=== PATIENT | female | born 1990 | race American Indian/Alaskan Native ===

== ENCOUNTER 2017-03-27 15:33 | Outpatient (CLI) | payer MEDICAID ==
[2017-03-27] MEDS ORDERED: LACTATED RINGERS 500 ML IV ONE (15:57)
== END 2017-03-27 16:30 | disposition home or self-care (01) ==
LOC: TRG 15:33
PROVIDERS: ATTEND Obstetrics & Gynecology
DX: O47.02 False labor before 37 completed weeks of gestation, second trimester (principal); Z3A.23 23 weeks gestation of pregnancy
CPT/HCPCS: 59025

== ENCOUNTER 2021-02-13 12:17 | Outpatient (CLI) | payer MEDICAID ==
[2021-02-13] MEDS ORDERED: LACTATED RINGERS 1,000 ML IV ONE (12:43)
[2021-02-13 12:55] VITALS: BP 118/79
[2021-02-13 13:13] LABS: Bilirubin,Urine NEG (Negative); Blood,Urine MOD (Negative); Color,Urine Amber (Yellow); Mucus,Urine 3+ /HPF
--- NOTE | 2021-02-13 14:42 | Ultrasound Report ---
ULTRASOUND BIOPHYSICAL PROFILE ULTRASOUND OB LIMITED INDICATION: BPP/SCOTT/ PLACENTA POSITION. TECHNIQUE: Transabdominal ultrasound imaging. COMPARISON: None FINDINGS: breathing movement = 2 Gross body movement = 2 tone = 2 Qualitative amniotic fluid volume = 2 Total biophysical score = 8/8 Amniotic fluid index is 12.8 cm. Presentation is cephalic. heart rate is 154 beats per minute. Placenta: The placenta is posterior, grade 0. A complete previa is appreciated. No subplacental colle ction. IMPRESSION: biophysical profile equals 8/8. A complete placenta previa is identified. Signer Name: Goryd Perez Jr, MD Signed: 02/13/2021 2:38 PM Workstation Name: [id number]
== END 2021-02-13 15:23 | disposition home or self-care (01) ==
LOC: TRG 12:17 → APU 12:17 → TRG 15:23
PROVIDERS: ATTEND Obstetrics & Gynecology
DX: O26.853 Spotting complicating pregnancy, third trimester (principal); O46.93 Antepartum hemorrhage, unspecified, third trimester; Z3A.30 30 weeks gestation of pregnancy
CPT/HCPCS: 59025; 76815; 76819; 81001; 96360

== ENCOUNTER 2021-02-26 14:00 | Outpatient (CLI) | payer MEDICAID ==
[2021-02-26 14:26] VITALS: BP 130/83
[2021-02-26] MEDS ORDERED: LACTATED RINGERS 500 ML IV ONE (16:00)
--- NOTE | 2021-02-26 16:24 | Ultrasound Report ---
ULTRASOUND OBSTETRIC LIMITED ULTRASOUND BIOPHYSICAL PROFILE INDICATION / CLINICAL INFORMATION: placenta well being. COMPARISON: OB ultrasound 02/13/2021 FINDINGS: BREATHING MOVEMENT = 2 GROSS BODY MOVEMENT = 2 TONE = 2 QUALITATIVE AMNIOTIC FLUID VOLUME = 2 TOTAL BIOPHYSICAL SCORE = 8/8 AMNIOTIC FLUID INDEX (cm) = 1220 PRESENTATION: Breech. HEART RATE (beats per minute): 142 ADDITIONAL FINDINGS: Placenta complete previa grade 0, unchanged IMPRESSION: 1. Biophysical Score = 8/8 2. Placenta previa Signer Name: Zackery Groves MD Signed: 02/26/2021 4:19 PM Workstation Name: [id number]
[2021-02-26 16:35] LABS: Basophils % (Auto) 0.2 % (0.0-1.8); Eosinophils # (Auto) 0.1 K/mm3 (0.0-0.4); Eosinophils % (Auto) 0.7 % (0.0-4.3); Hematocrit 31.6 % (30.3-42.9); Lymphocytes # (Auto) 1.6 K/mm3 (1.2-5.4); Lymphocytes % (Auto) 21.9 % (13.4-35.0); Mean Corpuscular HGB Conc 32 % (30-34); Mean Corpuscular Volume 78 fl (79-97); Monocytes # (Auto) 0.6 K/mm3 (0.0-0.8); Monocytes % (Auto) 7.7 % (0.0-7.3); Platelet Count 188 K/mm3 (140-440); Red Blood Count 4.06 M/mm3 (3.65-5.03); Red Cell Distribution Width 20.9 % (13.2-15.2)
== END 2021-02-26 16:39 | disposition home or self-care (01) ==
LOC: TRG 14:00 → APU 14:13 → TRG 16:39
PROVIDERS: ATTEND Obstetrics & Gynecology
DX: O44.03 Complete placenta previa NOS or without hemorrhage, third trimester (principal); Z3A.32 32 weeks gestation of pregnancy
CPT/HCPCS: 36415; 59025; 76815; 76819; 85025; 85384

== ENCOUNTER 2021-03-15 20:54 | Inpatient (IN) | payer MEDICAID ==
[2021-03-15] MEDS ORDERED: METHYLERGONOVINE MALEATE 0.2 MG/ML VIAL IM ONE (21:00)
[2021-03-15] MEDS ORDERED: FAMOTIDINE 20 MG/2 ML INJ IV ONE ×3 (21:04→21:28)
[2021-03-15] MEDS ORDERED: BICITRA ORAL LIQD 30ML ONE (21:04)
[2021-03-15] MEDS ORDERED: METOCLOPRAMIDE 10 MG/2 ML INJ ONE (21:04)
[2021-03-15] MEDS ORDERED: OXYTOCIN DRIP 30,000 MILLIUNITS/500 ML BAG IV ONE (21:05)
[2021-03-15] MEDS ORDERED: miSOPROStol 200 MCG TAB ONE (21:05)
--- NOTE | 2021-03-15 21:05 | Anesthesia Day of Surgery ---
Anesthesia Day of Surgery - Day of Surgery Patient Examined: Yes Patient H&P Reviewed: Yes Patient is NPO: No (1 hr ago) Beta Blockers: No Cardiac Clearance: No Pulmonary Clearance: No Jhon's Test: Negative
[2021-03-15] MEDS ORDERED: ONDANSETRON 4 MG/2 ML INJ IV PRN (21:07)
[2021-03-15] MEDS ORDERED: HYDROmorphone 1 MG/1 ML INJ IV PRN ×2 (21:07)
[2021-03-15] MEDS ORDERED: NALOXONE 0.4 MG/1 ML INJ IV PRN ×2 (21:07→22:30)
--- NOTE | 2021-03-15 21:07 | Anesthesia Consultation ---
Anesthesia Consult and Med Hx Date of service: 03/15/21 - Airway Anesthetic Teeth Evaluation: Poor ROM Head & Neck: Adequate Mental/Hyoid Distance: Adequate Mallampati Class: Class II Intubation Access Assessment: Probably Good - Pulmonary Exam CTA: Yes - Cardiac Exam Cardiac Exam: RRR - Pre-Operative Health Status ASA Pre-Surgery Classification: ASA3, Emergency Proposed Anesthetic Plan: General, Spinal - Pulmonary Hx Smoking: Yes (stop with ) Hx Asthma: No Hx Respiratory Symptoms: No SOB: No COPD: No Home Oxygen Therapy: No Hx Pneumonia: No Hx Sleep Apnea: No - Cardiovascular System Hx Hypertension: No Hx Coronary Artery Disease: No Hx Heart Attack/AMI: No Hx Angina: No Hx Percutaneous Transluminal Coronary Angioplasty (PTCA): No Hx Cardia Arrhythmia: No Hx Pacemaker: No Hx Internal Defibrillator: No Hx Valvular Heart Disease: No Hx Heart Murmur: No Hx Peripheral Vascular Disease: No - Central Nervous System Hx Neuromuscular Disorder: No Hx Seizures: Yes (2012 preeclampsia) CVA: No Hx Back Pain: Yes Hx Psychiatric Problems: No - Gastrointestinal Hx Ulcer: No Hx Gastroesophageal Reflux Disease: Yes - Endocrine Hx Renal Disease: No Hx End Stage Renal Disease: No Hx Cirrhosis: No Hx Liver Disease: No Hx Insulin Dependent Diabetes: No Hx Non-Insulin Dependent Diabetes: No Hx Thyroid Disease: No Hx Hypothyroidism: No Hx Hyperthyroidism: No - Hematic Hx Anemia: No Hx Sickle Cell Disease: No - Other Systems Hx Alcohol Use: No Hx Substance Use: Yes Hx Cancer: No Hx Obesity: No
[2021-03-15] MEDS ORDERED: ONDANSETRON 4 MG/2 ML INJ ONE ×2 (21:18)
[2021-03-15] MEDS ORDERED: METOCLOPRAMIDE 10 MG/2 ML INJ IV ONE (21:28)
[2021-03-15] MEDS ORDERED: BICITRA ORAL LIQD 30ML PO ONE (21:28)
[2021-03-15] MEDS ORDERED: LACTATED RINGERS 1,000 ML IV SCH (21:30)
[2021-03-15 21:35] LABS: Hematocrit 34.7 % (30.3-42.9); Hemoglobin 11.1 gm/dl (10.1-14.3); Mean Corpuscular HGB Conc 32 % (30-34); Mean Corpuscular Volume 78 fl (79-97); Platelet Count 242 K/mm3 (140-440); Red Blood Count 4.45 M/mm3 (3.65-5.03)
--- NOTE | 2021-03-15 21:36 | History and Physical Report ---
History of Present Illness Date of examination: 03/15/21 Date of admission: 03/15/21 Chief complaint: 34 wks iup,placenta previa,vag bleeding History of present illness: Patient is a 30-year-old Afro[place] female at 34 weeks with complete placenta previa. Her EDC is 04/23/2021 she has a history of previous section x1 and 2 vaginal deliveries. She has 1 living child. Her paperwork is not available. She is a patient at [facility]. The patient presented with significant amount of vaginal bleeding and we are making preparations for a repeat section for the above diagnosis. Past History Past Surgical History: section Family/Genetic History: none Social history: single - Obstetrical History Expected Date of Delivery: 04/23/21 Actual Gestation: 34 Week(s) 3 Day(s) : 6 Para: 5 Hx # Term Pregnancies: 4 Number of Pregnancies: 0 Spontaneous Abortions: 0 Induced : 0 Number of Living Children: 2 Medications and Allergies Allergies Allergy/AdvReac Type Severity Reaction Status Date / Time No Known Allergies Allergy Verified 03/27/17 15:56 Active Meds: Active Medications Citric Acid/Sodium Citrate (Bicitra Oral Liqd 30ml) 30 ml PO ONCE ONE Stop: 03/15/21 21:29 Famotidine (Famotidine 20 Mg/2 Ml Inj) 20 mg IV ONCE ONE Stop: 03/15/21 21:29 Hydromorphone HCl (Hydromorphone 1 Mg/1 Ml Inj) 0.5 mg IV Q5M PRN PRN Reason: BREAK Stop: 03/16/21 05:59 Hydromorphone HCl (Hydromorphone 1 Mg/1 Ml Inj) 0.5 mg IV Q4H PRN PRN Reason: breakthrough pain > 7/10 Lactated Ringer's (Lactated Ringers) 1,000 mls @ 2,250 mls/hr IV PREOP MICKY Stop: 03/16/21 21:57 Oxytocin/Sodium Chloride (Pitocin/Ns 30 Unit/500ml) 30 units in 500 mls @ 0 mls/hr IV TITR MICKY; Protocol Metoclopramide HCl (Metoclopramide 10 Mg/2 Ml Inj) 10 mg IV ONCE ONE Stop: 03/15/21 21:29 Naloxone HCl (Naloxone 0.4 Mg/1 Ml Inj) 0.2 mg IV Q2MIN PRN PRN Reason: Res Rate </= 8 or 02 SAT < 92% Ondansetron HCl (Ondansetron 4 Mg/2 Ml Inj) 4 mg IV Q8H PRN PRN Reason: Nausea And Vomiting Review of Systems All systems: negative - Vital Signs Vital signs: Vital Signs Pulse Pulse Ox 98 H 99 03/15/21 21:00 03/15/21 21:00 Temp Pulse Resp BP Pulse Ox 108 H 138/90 99 03/15/21 21:30 03/15/21 21:11 03/15/21 21:30 - Physical Exam Breasts: Cardiovascular: Regular rate, Normal S1, Normal S2 Abdomen: Positive: normal appearance, soft, normal bowel sounds. Negative: distention, tenderness Vulva: both: normal Vagina: Positive: normal moisture. Negative: discharge Cervix: Negative: lesion, discharge Uterus: Positive: normal size, enlarged (34 wk size), normal contour Adnexa: both: normal Anus/Rectum: Positive: normal perianal skin, heme negative. Negative: rectal mass, hemorrhoids Extremities: Deep Tendon Reflex Grade: Normal +2 - Obstetrical FHR: category 1 Uterine Contraction Monitor Mode: Palpation Results All other labs normal. Assessment and Plan 34 wks, placenta previa, vag bleeding.plan emergency l/t c/s.
[2021-03-15] MEDS ORDERED: LACTATED RINGERS 2,000 ML ONE (21:37)
[2021-03-15] MEDS ORDERED: PHENYLEPHRINE/NS 1,000 MCG/10 ML SYRINGE (OR USE) IV ONE (21:39)
[2021-03-15] MEDS ORDERED: ceFAZolin/STERILE WATER 2 GM/20 ML SYRINGE IV ONE (21:40)
[2021-03-15 21:44] LABS: INR 0.97 (0.87-1.13)
[2021-03-15 21:45] LABS: Partial Thromboplastin Time 28.5 Sec. (24.2-36.6)
[2021-03-15] MEDS ORDERED: LACTATED RINGERS 1,000 ML ONE (21:54)
[2021-03-15] MEDS ORDERED: dexAMETHasone 20 MG/5 ML VIAL ONE (21:57)
[2021-03-15] MEDS ORDERED: BUPIVACAINE/PF (0.25%) 2.5 MG/ML 30 ML VIAL INFILTRATI ONE ×2 (21:57)
[2021-03-15] MEDS ORDERED: SODIUM CHLORIDE 0.9% 500 ML 500 ML IV ONE (21:58)
[2021-03-15] MEDS ORDERED: OXYTOCIN DRIP 30 UNITS/500 ML BAG IV SCH ×2 (22:00→23:00)
[2021-03-15] MEDS ORDERED: KETOROLAC 30 MG/1 ML INJ ONE (22:16)
[2021-03-15] MEDS ORDERED: WITCH HAZEL/ GLYCERIN PAD TP PRN (22:30)
[2021-03-15] MEDS ORDERED: MORPHINE 2 MG/1 ML INJ IV PRN (22:30)
[2021-03-15] MEDS ORDERED: LANOLIN/ZINC/DIMETHICONE (LANSINOH) 7 GM TP PRN (22:30)
--- NOTE | 2021-03-15 22:43 | Procedure Note ---
Date of procedure: 03/15/21 Pre-op diagnosis: 35 weeks iup, complete previa, vaginal bleeding Post-op diagnosis: other (nuchal cord x 1) Procedure: Operative note on this patient. Time of surgery was [address] Truong Cushion Padder none. Preop diagnosis 35-week intrauterine complete placenta previa vaginal bleeding. Postop diagnosis same and nuchal cord x1. Procedure was a repeat low transverse section. Estimated blood loss 760 cc. Findings liveborn female infant weight 5 pounds 3 ounces Apgars 7 and 7 also the patient had a complete placenta previa. Complications none. The procedure was performed in the following manner patient was taken to the section room. Given a spinal anesthetic adequate enough for the procedure she was then prepped and draped in usual manner and had an indwelling Savage catheter placed we then did timeout we concurred. A Pfannenstiel incision was created along the previous Pfannenstiel incision we entered abdominal cavity anatomically vesicouterine peritoneum was opened transversely with Metzenbaums bladder was bluntly and sharply dissected off the lower uterine segment. A low transverse incision was made in the lower uterine segment with a scalpel and fetus in occiput anterior presentation was delivered with the help of the Kiwi suction cup. Oropharyngeal suction nasopharynx suction resume was delivered cord was doubly clamped and cut fetus passed off the table to the nurses in attendance from the nursery. Cord blood was obtained placenta was then delivered manually the placenta was not complete placenta previa. The uterus was cleaned debris membranes blood and tissue uterus then delivered extra-abdominal uterine incision was repaired in 2 layers first layer was in a deep myometrium using running #0 chromic in a deep myometrium running locking fashion superficial myometrium was closed with running 2-0 Vicryl in a running locking fashion the uterine incision was hemostatic vesicouterine peritoneum was repaired running 2-0 chromic and there was a small tear on the top of the uterus which was repaired with a transfixing suture #0 chromic this area was hemostatic tubes and ovaries appeared to be found fine. Gutters were suction of tissue brief debris and blood. See no further procedures indicated all instruments removed from abdominal care instrument count needle lap sponge count was correct anterior abdominal peritoneum was repaired running 2-0 chromic fascia was repaired running 2-0 chromic subcutaneous prior running 0 Vicryl subcutaneous. Tissue repaired running 2-0 chromic the skin was repaired with a running 4-0 Vicryl on a Ishmael needle and drained with Dermabond patient tolerated procedure well she was then returned recovery room in stable condition end of operative note on this patient. Anesthesia: spinal Surgeon: DELGADO TRUONG Estimated blood loss: other (760ccs) IV fluids: 1,200 Urine output: 200 Pathology: list Specimen disposition: to lab Condition: stable Disposition: PACU
--- NOTE | 2021-03-15 23:07 | Progress Note ---
Spinal Anesthesia Block - Spinal Anesthesia Block Start Time: 21:36 Stop Time: 21:39 Performed by:: SHADI NARAYANAN Procedure: Patient IDed, H&P reviewed, all questions and concerns were answered, and consent was signed. Timeout was performed at bedside. Patient in sitting position. Sterile prep and drape was performed. [3] ml of 1% lidocaine skin wheal at L[3]- L [4]. Needle introducer advanced. 25 gauge spinal needle advanced. Clear, free flowing CSF. negative blood, negative paresthesia. Spinal dose given. All needles removed. Patient tolerated procedure.
--- NOTE | 2021-03-15 23:08 | Progress Note ---
Spinal Anesthesia Block - Spinal Anesthesia Block Start Time: 22:48 Stop Time: 22:52 Performed by:: SHADI NARAYANAN Procedure: Patient consented for TAP block for post surgical pain management. Patient identified, monitors placed, and time out performed. TAP identified bilaterally via ultrasound. Skin prepped bilaterally with [chlorhexidine] and [22g stimuplex] needle advanced to the TAP. [Marcaine 0.25% 35ml] injected under ultrasound guidance on the [left] side. [Marcaine 0.25% 35ml] injected under ultrasound guidance on the [right] side. Negative aspiration every 5mL, No change in heart rate or rhythm. Patient tolerated the procedure well. No apparent complications seen.
[2021-03-16] MEDS: MORPHINE 4 MG/1 ML INJ IV PRN ×2 (01:13→04:12)
[2021-03-16] MEDS ORDERED: LACTATED RINGERS 1,000 ML IV SCH (04:30)
[2021-03-16] MEDS: IBUPROFEN 600 MG TAB PO PRN ×2 (06:37→15:47)
[2021-03-16] MEDS: oxyCODONE /ACETAMINOPHEN 5-325MG TAB PO PRN ×3 (09:49→22:22)
[2021-03-16] MEDS: SIMETHICONE 80 MG CHEW TAB PO PRN (09:52)
--- NOTE | 2021-03-16 10:58 | Post Anesthesia Evaluation ---
- Post Anesthesia Evaluation Patient Participated: Yes Airway Patent: Yes Stable Respiratory Function: Yes Nausea/Vomiting: No Temp > 96.8F: Yes Pain Manageable: Yes Adequeate Hydration: Yes Anesthesia Complications: No Block Receding Appropriately: Yes Patient on Ventilator: No
--- NOTE | 2021-03-16 11:44 | Progress Note ---
Assessment and Plan A: S/P Repeat LTCS No H&H and covid results No void yet Abd slightly distended P: Continue routine pp orders Awaiting Lab results Encourage ambulation Monitor void D/C home within 24-48 hrs if stable - Patient Problems (1) S/P repeat low transverse Current Visit: Yes Status: Acute Subjective - Subjective Date of service: 03/16/21 Principal diagnosis: s/p LTCS Patient reports: appetite normal, pain well controlled, flatus, ambulating normally, other (Savage just removed no void yet) [place]: doing well, in NICU Objective - Vital Signs Latest vital signs: Vital Signs Temp Pulse Resp BP BP Pulse Ox Pulse Ox 03/16/21 10:18 100 03/16/21 08:15 98 03/16/21 07:53 98.0 F 72 20 132/86 98 03/16/21 06:37 18 03/16/21 06:35 98 03/16/21 04:34 98.0 F 65 16 125/81 97 03/16/21 04:12 18 03/16/21 01:40 98 03/16/21 01:13 16 98 03/16/21 00:25 97.9 F 64 16 130/88 98 98 03/16/21 00:00 97.6 F 62 19 120/81 100 03/15/21 23:55 66 17 121/74 100 03/15/21 23:40 68 15 116/79 99 03/15/21 23:25 92 H 11 L 116/85 99 03/15/21 23:18 99 03/15/21 23:10 65 20 128/85 99 03/15/21 22:50 62 13 110/60 03/15/21 22:45 73 16 109/60 03/15/21 22:40 97.8 F 79 20 106/54 100 03/15/21 21:30 108 H 99 03/15/21 21:25 97 H 100 03/15/21 21:20 108 H 100 03/15/21 21:15 104 H 100 03/15/21 21:11 92 H 138/90 03/15/21 21:10 107 H 100 03/15/21 21:05 103 H 100 03/15/21 21:00 98 H 99 Intake and Output 03/15/21 03/16/21 03/16/21 22:59 06:59 14:59 Intake Total 1200 200 200 Output Total 200 1600 100 Balance 1000 -1400 100 Intake: IV 1200 Oral 200 200 Output: Urine 200 1600 100 Indwelling Catheter 400 100 Uretheral (Savage) 925 Other: Total, Intake Amount 100 200 Total, Output Amount 200 100 Weight 144 lb 144 lb Estimated Blood Loss 760 - Exam Breasts: Present: normal Abdomen: Present: normal appearance, soft, distention, normal bowel sounds, other (some distention) Vulva: both: normal Uterus: Present: normal, firm, fundal height below umbilicus Extremities: Present: normal Incision: Present: normal, dry, intact - Labs Labs: Abnormal lab results 03/15/21 03/15/21 03/15/21 Range/Units 21:00 21:00 21:00 MCV 78 L (79-97) fl MCH 25 L (28-32) pg RDW 21.0 H (13.2-15.2) % D-Dimer 824.20 H (0-234) ng/mlDDU Crossmatch See Detail
[2021-03-16 13:09] LABS: Hematocrit 29.8 % (30.3-42.9); Hemoglobin 9.7 gm/dl (10.1-14.3)
[2021-03-17] MEDS: IBUPROFEN 600 MG TAB PO PRN ×4 (00:30→20:14)
[2021-03-17] MEDS: oxyCODONE /ACETAMINOPHEN 5-325MG TAB PO PRN ×4 (04:32→23:11)
[2021-03-17] MEDS: SIMETHICONE 80 MG CHEW TAB PO PRN (09:31)
[2021-03-17] MEDS: FERROUS SULFATE 325 MG TAB PO SCH ×2 (09:31→23:10)
--- NOTE | 2021-03-17 20:19 | Progress Note ---
Assessment and Plan A: /postop day 2 S/P repeat LTCS (complete previa, ). Anemia. P: Continue iron supplementation. Encouraged patient to ambulate. Routine /postop care. Subjective - Subjective Date of service: 03/17/21 Principal diagnosis: /postop day 2 S/P repeat LTCS Patient reports: appetite normal, voiding normally, pain well controlled, flatus, ambulating normally, no dizzy ambulation, no nauseated : in NICU Objective - Vital Signs Latest vital signs: Vital Signs Temp Pulse Resp BP Pulse Ox Pulse Ox 03/17/21 20:14 18 03/17/21 15:58 98.0 F 79 18 127/84 98 03/17/21 08:42 98.0 F 74 18 130/86 99 03/17/21 08:00 98 03/17/21 05:22 98 03/17/21 04:32 18 98 03/17/21 00:45 98.1 F 64 18 96/48 96 03/16/21 22:22 18 99 Intake and Output 03/17/21 03/17/21 03/17/21 07:59 15:59 23:59 Intake Total 260 Balance 260 Intake: Oral 260 Other: Total, Intake Amount 260 # Voids Void 3 1 - Exam Cardiovascular: Present: Regular rate Lungs: Present: Clear to auscultation Abdomen: Present: normal appearance, soft, normal bowel sounds. Absent: distention, tenderness, guarding, rigidity Uterus: Present: normal, firm, fundal height below umbilicus (Fundal height at 1 FB below umbilicus). Absent: bogginess, tenderness Extremities: Absent: tenderness, edema Incision: Present: dry, intact - Labs Labs: Abnormal lab results 03/15/21 Range/Units 21:00 Crossmatch See Detail
[2021-03-18] MEDS: IBUPROFEN 600 MG TAB PO PRN ×3 (02:54→16:05)
[2021-03-18] MEDS: oxyCODONE /ACETAMINOPHEN 5-325MG TAB PO PRN ×3 (05:09→17:35)
[2021-03-18 08:50] LABS: Bilirubin,Urine NEG (Negative); Blood,Urine MOD (Negative); Color,Urine Yellow (Yellow); Mucus,Urine FEW /HPF; Protein,Urine <15 mg/dL mg/dL (Negative); Urobilinogen,Urine < 2.0 mg/dL (<2.0)
[2021-03-18 09:04] LABS: Basophils % (Auto) 0.2 % (0.0-1.8); Eosinophils # (Auto) 0.1 K/mm3 (0.0-0.4); Eosinophils % (Auto) 1.6 % (0.0-4.3); Hematocrit 27.9 % (30.3-42.9); Lymphocytes # (Auto) 1.9 K/mm3 (1.2-5.4); Mean Corpuscular HGB Conc 32 % (30-34); Mean Corpuscular Volume 80 fl (79-97); Monocytes # (Auto) 0.6 K/mm3 (0.0-0.8); Monocytes % (Auto) 7.2 % (0.0-7.3); Platelet Count 150 K/mm3 (140-440); Red Blood Count 3.51 M/mm3 (3.65-5.03)
--- NOTE | 2021-03-18 09:32 | Progress Note ---
Assessment and Plan POD#3 c/s still with dysuria, unclear cause. pt also with bilaterally engorged breasts 1. Will send straight cath urine for analysis 2. Continue antibiotics and pt told to pump milk every 2hrs and warm compress 3. Routine post op care Plan of care discussed and pt agrees Subjective Date of service: 03/18/21 Principal diagnosis: POD#2 repeat c/s Interval history: pt c/o painful urination felt along the incision site. pt also states when she lies on her left side, the incision is very painful. pt states she is breast pumping but minimal milk noted. pt has been going to the NICU to see her baby. Denies fever or chills. pt is passing flatus and vag bleed less than a period. Objective - Constitutional Vitals: Vital Signs - 12hr 03/17/21 03/18/21 03/18/21 23:11 00:11 00:54 Temperature 97.8 F Pulse Rate 75 Respiratory 18 18 20 Rate Blood Pressure 133/82 O2 Sat by Pulse 97 Oximetry O2 Sat by Pulse Oximetry [ Anterior Bilateral Throughout] 03/18/21 03/18/21 03/18/21 02:54 03:54 05:09 Temperature Pulse Rate Respiratory 18 18 18 Rate Blood Pressure O2 Sat by Pulse Oximetry O2 Sat by Pulse Oximetry [ Anterior Bilateral Throughout] 03/18/21 03/18/21 03/18/21 06:09 08:00 08:27 Temperature 98.3 F Pulse Rate 75 Respiratory 18 20 Rate Blood Pressure 133/81 O2 Sat by Pulse 99 Oximetry O2 Sat by Pulse 98 Oximetry [ Anterior Bilateral Throughout] General appearance: Present: no acute distress - Breasts Breasts: tender, other (and engorged bilaterally) - Cardiovascular Rhythm: regular Extremities: No edema - Gastrointestinal General gastrointestinal: Present: soft, other (Incision with dermabond in place and non-tender on palpation.) - Genitourinary Female genitourinary: other (Fundus firm 2cm below the umbilicus) - Labs CBC & Chem 7: 03/16/21 10:38 Medications & Allergies - Medications Allergies/Adverse Reactions: Allergies No Known Allergies Allergy (Verified 03/16/21 00:54) Active Medications: Generic Name Dose Route Start Last Admin Trade Name Freq PRN Reason Stop Dose Admin Ferrous Sulfate 325 mg 03/17/21 10:00 03/17/21 23:10 Ferrous Sulfate 325 Mg Tab PO 325 mg BID MICKY Administration Hydromorphone HCl 0.5 mg 03/15/21 21:07 Hydromorphone 1 Mg/1 Ml Inj IV Q4H PRN breakthrough pain > 7/10 Oxytocin/Sodium Chloride 30 units in 500 mls @ 0 mls/hr 03/15/21 22:00 Pitocin/Ns 30 Unit/500ml IV TITR MICKY Protocol As Directed Oxytocin/Sodium Chloride 30 units in 500 mls @ 40 mls/hr 03/15/21 23:00 Pitocin/Ns 30 Unit/500ml IV TITR MICKY Protocol Lactated Ringer's 1,000 mls @ 125 mls/hr 03/16/21 04:30 03/16/21 04:38 Lactated Ringers IV 125 mls/hr DIRECT MICKY Administration Ibuprofen 600 mg 03/15/21 22:30 03/18/21 08:27 Ibuprofen 600 Mg Tab PO 600 mg Q6H PRN Administration Pain, Mild (1-3) Morphine Sulfate 2 mg 03/15/21 22:30 Morphine 2 Mg/1 Ml Inj IV Q4H PRN Pain, Moderate (4-6) Morphine Sulfate 4 mg 03/15/21 22:30 03/16/21 04:12 Morphine 4 Mg/1 Ml Inj IV 4 mg Q4H PRN Administration Pain , Severe (7-10) Multi-Ingredient Ointment 1 applic 03/15/21 22:30 03/18/21 08:30 Lanolin/Zinc/Dimethicone (Lansinoh) 7 Gm TP 1 applic PRN PRN Administration dryness/cracking Naloxone HCl 0.1 mg 03/15/21 22:30 Naloxone 0.4 Mg/1 Ml Inj IV Q2MIN PRN Res Rate </= 8 or 02 SAT < 92% Ondansetron HCl 4 mg 03/15/21 21:07 Ondansetron 4 Mg/2 Ml Inj IV Q8H PRN Nausea And Vomiting Oxycodone/Acetaminophen 1 tab 03/15/21 22:30 03/18/21 05:09 Oxycodone /Acetaminophen 5-325mg Tab PO 1 tab Q6H PRN Administration Pain, Moderate (4-6) Simethicone 80 mg 03/15/21 22:30 03/17/21 09:31 Simethicone 80 Mg Chew Tab PO 80 mg Q6H PRN Administration Gas pain Sodium Chloride 10 ml 03/15/21 23:00 Sodium Chloride 0.9% 10 Ml Flush Syringe IV PRN PRN LINE FLUSH Witch Kaitlyn/Glycerin 1 each 03/15/21 22:30 Witch Kaitlyn/ Glycerin Pad TP PRN PRN Hemorrhoids/cleansing/soothing
[2021-03-18 09:37] LABS: Red Cell Distribution Width 20.4 % (13.2-15.2)
[2021-03-18] MEDS: FERROUS SULFATE 325 MG TAB PO SCH ×2 (10:27→22:55)
[2021-03-18 17:00] LABS: Bilirubin,Urine NEG (Negative); Blood,Urine NEG (Negative); Color,Urine Yellow (Yellow); Mucus,Urine FEW /HPF; Protein,Urine <15 mg/dL mg/dL (Negative)
--- NOTE | 2021-03-18 19:37 | Event Note ---
Date: 03/18/21 Labs seen with urinalysis with moderate blood. I called pt's nurse and asked if cath specimen was done earlier. She stated no. Straight cath urinalysis done and results seen and negative hematuria noted. Percocet meds adjusted to 2 pills prn with better effect per nurse report. Plan for possible discharge in the am if pt remains stable.
[2021-03-19] MEDS: oxyCODONE /ACETAMINOPHEN 5-325MG TAB PO PRN ×4 (00:35→19:20)
[2021-03-19] MEDS: FERROUS SULFATE 325 MG TAB PO SCH ×2 (09:41→22:35)
[2021-03-19] MEDS: IBUPROFEN 600 MG TAB PO PRN ×2 (09:41→16:48)
--- NOTE | 2021-03-19 10:00 | Progress Note ---
Assessment and Plan POD#4 C/S with scant drainage from incision centrally. Platelets trended from 250's to 150's; hgb 9; Bilateral breast without engorgement today 1. Will repeat CBC today, place dry gauze pressure dressing and give iron supplement. 2. Start augmentin abx bid 3. Consider discharge tomorrow when wound heals adequately 4. Continue breast pumping every 2-3hours Plan of care discussed Subjective Principal diagnosis: POD#3 repeat c/s Interval history: pt is now breast pumping with good milk return today. pt states abdominal pain much improved and now with 2 percocet tabs. Pt denies N/V/F/C and tolerates regular diet and passing flatus. pt takes milk to the NICU and visit with baby. Objective - Constitutional Vitals: Vital Signs - 12hr 03/19/21 03/19/21 03/19/21 00:35 00:38 01:03 Temperature 98.5 F Pulse Rate 101 H Respiratory 20 Rate Blood Pressure 129/90 O2 Sat by Pulse 100 Oximetry O2 Sat by Pulse 100 100 Oximetry [ Anterior Bilateral Throughout] 03/19/21 03/19/21 03/19/21 05:48 07:26 08:00 Temperature 99.1 F Pulse Rate 81 Respiratory 18 16 Rate Blood Pressure 117/70 O2 Sat by Pulse 95 Oximetry O2 Sat by Pulse 98 98 Oximetry [ Anterior Bilateral Throughout] General appearance: Present: no acute distress - Respiratory Respiratory effort: normal Extremities: No edema - Gastrointestinal General gastrointestinal: Present: non-tender, non-distended, other (Incision with dermabond, now oozing scant serosanguinous fluid centrally below a previously white powder area, no warmth; mild edema above the incision.) - Integumentary Integumentary: warm - Neurologic Neurologic: moves all extremities - Psychiatric Psychiatric: cooperative - Labs CBC & Chem 7: 03/18/21 08:40 Medications & Allergies - Medications Allergies/Adverse Reactions: Allergies No Known Allergies Allergy (Verified 03/16/21 00:54) Home Medications: Home Medications Medication Instructions Recorded Confirmed Last Taken Type Ibuprofen [Motrin] 800 mg PO Q8HR PRN 21 Days #40 03/19/21 Unknown Rx tablet oxyCODONE /ACETAMINOPHEN [Percocet 1 tab PO Q4HR PRN 21 Days #30 tab 03/19/21 Unknown Rx 5/325] Active Medications: Generic Name Dose Route Start Last Admin Trade Name Markq PRN Reason Stop Dose Admin Ferrous Sulfate 325 mg 03/17/21 10:00 03/19/21 09:41 Ferrous Sulfate 325 Mg Tab PO 325 mg BID MICKY Administration Hydromorphone HCl 0.5 mg 03/15/21 21:07 Hydromorphone 1 Mg/1 Ml Inj IV Q4H PRN breakthrough pain > 7/10 Oxytocin/Sodium Chloride 30 units in 500 mls @ 0 mls/hr 03/15/21 22:00 Pitocin/Ns 30 Unit/500ml IV TITR MICKY Protocol As Directed Oxytocin/Sodium Chloride 30 units in 500 mls @ 40 mls/hr 03/15/21 23:00 Pitocin/Ns 30 Unit/500ml IV TITR MICKY Protocol Lactated Ringer's 1,000 mls @ 125 mls/hr 03/16/21 04:30 03/16/21 04:38 Lactated Ringers IV 125 mls/hr DIRECT MICKY Administration Ibuprofen 600 mg 03/15/21 22:30 03/19/21 09:41 Ibuprofen 600 Mg Tab PO 600 mg Q6H PRN Administration Pain, Mild (1-3) Morphine Sulfate 2 mg 03/15/21 22:30 Morphine 2 Mg/1 Ml Inj IV Q4H PRN Pain, Moderate (4-6) Morphine Sulfate 4 mg 03/15/21 22:30 03/16/21 04:12 Morphine 4 Mg/1 Ml Inj IV 4 mg Q4H PRN Administration Pain , Severe (7-10) Multi-Ingredient Ointment 1 applic 03/15/21 22:30 03/18/21 08:30 Lanolin/Zinc/Dimethicone (Lansinoh) 7 Gm TP 1 applic PRN PRN Administration dryness/cracking Naloxone HCl 0.1 mg 03/15/21 22:30 Naloxone 0.4 Mg/1 Ml Inj IV Q2MIN PRN Res Rate </= 8 or 02 SAT < 92% Ondansetron HCl 4 mg 03/15/21 21:07 Ondansetron 4 Mg/2 Ml Inj IV Q8H PRN Nausea And Vomiting Oxycodone/Acetaminophen 1 tab 03/15/21 22:30 03/19/21 05:48 Oxycodone /Acetaminophen 5-325mg Tab PO 1 tab Q6H PRN Administration Pain, Moderate (4-6) Oxycodone/Acetaminophen 2 tab 03/18/21 10:16 03/19/21 00:35 Oxycodone /Acetaminophen 5-325mg Tab PO 2 tab Q6H PRN Administration Pain, Moderate (4-6) Simethicone 80 mg 03/15/21 22:30 03/17/21 09:31 Simethicone 80 Mg Chew Tab PO 80 mg Q6H PRN Administration Gas pain Sodium Chloride 10 ml 03/15/21 23:00 Sodium Chloride 0.9% 10 Ml Flush Syringe IV PRN PRN LINE FLUSH Witch Kaitlyn/Glycerin 1 each 03/15/21 22:30 Witch Kaitlyn/ Glycerin Pad TP PRN PRN Hemorrhoids/cleansing/soothing
[2021-03-19 10:57] LABS: Basophils % (Auto) 0.4 % (0.0-1.8); Eosinophils # (Auto) 0.2 K/mm3 (0.0-0.4); Eosinophils % (Auto) 3.1 % (0.0-4.3); Hematocrit 28.3 % (30.3-42.9); Hemoglobin 8.9 gm/dl (10.1-14.3); Lymphocytes # (Auto) 2.1 K/mm3 (1.2-5.4); Lymphocytes % (Auto) 28.6 % (13.4-35.0); Mean Corpuscular HGB Conc 31 % (30-34); Mean Corpuscular Volume 79 fl (79-97); Monocytes # (Auto) 0.5 K/mm3 (0.0-0.8); Monocytes % (Auto) 6.7 % (0.0-7.3); Platelet Count 241 K/mm3 (140-440); Red Blood Count 3.57 M/mm3 (3.65-5.03)
[2021-03-19 11:35] LABS: Red Cell Distribution Width 20.5 % (13.2-15.2)
[2021-03-19] MEDS: AMOXICILLIN/K CLAV 875/125MG TAB PO SCH (12:37)
[2021-03-20] MEDS: AMOXICILLIN/K CLAV 875/125MG TAB PO SCH ×2 (00:47→09:08)
[2021-03-20] MEDS: IBUPROFEN 600 MG TAB PO PRN (01:41)
[2021-03-20] MEDS: oxyCODONE /ACETAMINOPHEN 5-325MG TAB PO PRN (07:34)
[2021-03-20 08:43] VITALS: BP 131/77
[2021-03-20] MEDS: FERROUS SULFATE 325 MG TAB PO SCH (09:08)
--- NOTE | 2021-03-20 09:20 | Discharge Summary ---
Providers - Providers Date of Admission: 03/15/21 22:39 Date of discharge: 03/20/21 Attending physician: DELGADO TRUONG MD Primary care physician: DEJAH CORONA MD Hospitalization Reason for admission: IUP - (placenta previa), section, labor, other Procedure: section Incision: normal Other procedures: none Discharge diagnosis: delivery (placenta previa) Condition at discharge: Good Disposition: 01 HOME / SELF CARE / HOMELESS Plan - Discharge Medications Prescriptions: Ibuprofen [Motrin] 800 mg PO Q8HR PRN 21 Days #40 tablet PRN Reason: Pain, Mild (1-3) oxyCODONE /ACETAMINOPHEN [Percocet 5/325] 1 tab PO Q4HR PRN 21 Days #30 tab PRN Reason: Pain , Severe (7-10) - Provider Discharge Summary Additional instructions: [] Smoking cessation referral if applicable(refer to patient education folder for contact #) [] Refer to [facility] Booklet Call your doctor immediately for: * Fever > 100.5 * Heavy vaginal bleeding ( >1 pad per hour) * Severe persistent headache * Shortness of breath * Reddened, hot, painful area to leg or breast * Drainage or odor from incision. * Keep incision clean and dry at all times and follow doctor's instructions regarding bathing/showering - Follow up plan Follow up: DEJAH CORONA MD [Primary Care Provider] - 7 Days Forms: [facility] Discharge Summary
== END 2021-03-20 10:00 | disposition home or self-care (01) | DRG 765 ==
LOC: TRG 20:54 → APU 20:56 → TRG 22:30 → APU 22:39 → OB 03-16 00:57
PROC: 10D00Z1 Extraction of Products of Conception, Low, Open Approach (ICD-10-PCS; principal; 2021-03-15)
PROC: 3E0T3BZ Introduction of Anesthetic Agent into Peripheral Nerves and Plexi, Percutaneous Approach (ICD-10-PCS; 2021-03-15)
DX: O44.13 Complete placenta previa with hemorrhage, third trimester (principal); O60.14X0 Preterm labor third trimester with preterm delivery third trimester, not applicable or unspecified; Z37.0 Single live birth; Z3A.35 35 weeks gestation of pregnancy; O69.81X0 Labor and delivery complicated by cord around neck, without compression, not applicable or unspecified; O34.211 Maternal care for low transverse scar from previous cesarean delivery; O90.81 Anemia of the puerperium; D64.9 Anemia, unspecified; Z20.822 Contact with and (suspected) exposure to COVID-19
CPT/HCPCS: 36415; 59025; 81001; 85014; 85018; 85025; 85027; 85379; 85610; 85730; 86592; 86706; 86850; 86900; 86901; 86920; 87086; 87806; 88307; 99211; G0378; A6250; G0463; J0690; J1100; J1885; J2270; J2370; J2405; J2765; J3490; J7120; U0003

== ENCOUNTER 2021-03-24 12:31 | Inpatient (IN) | payer MEDICAID ==
--- NOTE | 2021-03-24 13:15 | Emergency Department Report ---
HPI - General Chief Complaint: Headache Time Seen by Provider: 03/24/21 12:59 - HPI HPI: Room 35 The patient is a 22-year-old female present with a chief complaint of hypertension. The patient was sent from her CORPORATE RISK ANALYST's office secondary to c oncern for preeclampsia. Patient status post delivery via 03/15/2021. Patient states she has had a sharp intermittent frontal and occipital headache for the past 3 days. Patient denies any preceding trauma or history of fever. Patient denies nausea or vomiting. The patient has a history of Klebsiella from previous pregnancies and today in her CORPORATE RISK ANALYST's office she was found to be hyper tensive at 140/120. Patient was subsequently sent to the ED. When asked how she is feeling down the patient states she feels a little drowsy and has a pressure in her head but no pain. The patient states she has not on any antihypertensives currently ED Past Medical Hx - Past Medical History Additional medical history: Eclampsia - Surgical History Additional Surgical History: - Family History Family history: no significant - Social History Smoking Status: Never Smoker Substance Use Type: None (Denies illicit drug use), Alcohol (Occasional) - Medications Home Medications: Home Medications Medication Instructions Recorded Confirmed Last Taken Type Ibuprofen [Motrin] 800 mg PO Q8HR PRN 21 Days #40 03/19/21 Unknown Rx tablet oxyCODONE /ACETAMINOPHEN [Percocet 1 tab PO Q4HR PRN 21 Days #30 tab 03/19/21 Unknown Rx 5/325] ED Review of Systems ROS: Stated complaint: HYPERTENSIVE Other details as noted in HPI Constitutional: denies: fever Eyes: denies: eye pain ENT: denies: throat pain Respiratory: no symptoms reported Cardiovascular: denies: chest pain Endocrine: no symptoms reported Gastrointestinal: denies: abdominal pain, nausea, vomiting Genitourinary: denies: dysuria Musculoskeletal: denies: back pain Neurological: headache Physical Exam - Physical Exam Vital Signs: Vital Signs 03/24/21 03/24/21 03/24/21 11:18 11:30 11:46 Pulse Rate Respiratory Rate Blood Pressure 112/73 112/73 Blood Pressure [Right] O2 Sat by Pulse 96 100 99 Oximetry 03/24/21 03/24/21 12:55 13:00 Pulse Rate 76 74 Respiratory 10 L 12 Rate Blood Pressure 112/73 Blood Pressure 155/102 [Right] O2 Sat by Pulse 100 Oximetry Physical Exam: GENERAL: The patient is well-developed well-nourished female sitting on stretcher not appearing to be in acute distress. [] HEENT: Normocephalic. Atraumatic. Extraocular motions are intact. Patient has moist mucous membranes. NECK: Supple. No meningitic signs are noted. Trachea midline CHEST/LUNGS: Clear to auscultation. There is no respiratory distress noted. HEART/CARDIOVASCULAR: Regular. There is no tachycardia. There is no gallop rub or murmur. ABDOMEN: Abdomen is soft, nontender. Patient has normal bowel sounds. There is no abdominal distention. SKIN: There is no rash. There is trace bilateral lower extremity edema. There is no diaphoresis. NEURO: The patient is awake, alert, and oriented. The patient is cooperative. The patient has no focal neurologic deficits. The patient has normal speech. Cranial nerves II through XII grossly intact. GCS 15 MUSCULOSKELETAL: There is no evidence of acute injury. ED Course Vital Signs 03/24/21 03/24/21 03/24/21 11:18 11:30 11:46 Pulse Rate Respiratory Rate Blood Pressure 112/73 112/73 Blood Pressure [Right] O2 Sat by Pulse 96 100 99 Oximetry 03/24/21 03/24/21 12:55 13:00 Pulse Rate 76 74 Respiratory 10 L 12 Rate Blood Pressure 112/73 Blood Pressure 155/102 [Right] O2 Sat by Pulse 100 Oximetry - Consultations Consultation #1: 03/24/21 15:10 CORPORATE RISK ANALYST paged 03/24/21 16:[address] Andre-states patient needs to be admitted and to contact Dr. Funk 03/24/21 16:12 Dr. Funk paged 03/24/21 16:[address] Funk will admit patient to L&D ED Medical Decision Making - Lab Data Result diagrams: 03/24/21 13:15 03/24/21 13:15 Laboratory Tests 03/24/21 03/24/21 03/24/21 13:15 13:15 14:37 WBC 5.3 RBC 3.89 Hgb 9.8 L Hct 30.6 MCV 79 MCH 25 L MCHC 32 RDW 20.6 H Plt Count 286 Lymph % (Auto) 37.7 H Wallace % (Auto) 7.5 H Eos % (Auto) 2.6 Baso % (Auto) 0.4 Lymph # (Auto) 2.0 Wallace # (Auto) 0.4 Eos # (Auto) 0.1 Baso # (Auto) 0.0 Seg Neutrophils % 51.8 Seg Neutrophils # 2.7 Sodium 141 Potassium 3.6 Chloride 105.4 Carbon Dioxide 25 Anion Gap 14 BUN 9 Creatinine 0.5 L Estimated GFR > 60 BUN/Creatinine Ratio 18 Glucose 90 Calcium 9.1 Total Bilirubin 0.30 AST 15 ALT 14 Alkaline Phosphatase 69 Total Protein 6.7 Albumin 3.6 L Albumin/Globulin Ratio 1.2 Urine Color Yellow Urine Turbidity Clear Urine pH 6.0 Ur Specific [place] 1.018 Urine Protein <15 mg/dl Urine Glucose (UA) Neg Urine Ketones Neg Urine Blood Neg Urine Nitrite Neg Urine Bilirubin Neg Urine Urobilinogen 4.0 Ur Leukocyte Esterase Tr Urine WBC (Auto) 5.0 Urine RBC (Auto) 2.0 U Epithel Cells (Auto) 2.0 Urine Mucus Few - Radiology Data Radiology results: report reviewed (CT head), image reviewed (CT head) [place] [id number] Cat Scan Report Signed Patient: SANCHEZ JEFFERY MR #: [id number] : 1990 Acct:[id number] Age/Sex: 30 / F ADM Date: 03/24/21 Loc: ED Attending Dr: Ordering Physician: PUSHPA BYRNE MD Date of Service: 03/24/21 Procedure(s): CT head/brain wo con Accession Number(s): [id number] cc: PUSHPA BYRNE MD CT head/brain wo con INDICATION: Headache, . TECHNIQUE: All CT scans at this location are performed using CT dose reduction for ALARA by means of automated exposure control. COMPARISON: None available. FINDINGS: There is no evidence of hemorrhage, hydrocephalus, brain edema, or mass effect/mass lesion. There is overall normal brain formation and brain volume for the patient's age. Ventricular and cisternal/sulcal size is normal for age. The included paranasal sinuses and mastoid air cells are clear. The orbits appear unremarkable. IMPRESSION: 1. No acute findings. Signer Name: Simon Finney MD Signed: 03/24/2021 1:32 PM Workstation Name: [id number] Transcribed By: KERRIE Dictated By: Simon Finney MD Electronically Authenticated By: Simon Finney MD Signed Date/Time: 03/24/211331 DD/ 30 TD/TT: Print Cancel - Differential Diagnosis Preeclampsia, intracranial mass, ICH, headache Critical care attestation.: If time is entered above; I have spent that time in minutes in the direct care of this critically ill patient, excluding procedure time. ED Disposition Clinical Impression: Preeclampsia, Headache Disposition: ADMITTED INPATIENT Is pt being admited?: Yes Does the pt Need Aspirin: No Condition: Fair Instructions: Hypertension (ED) Referrals: PRIMARY CARE, [Primary Care Provider] - 3-5 Days Time of Disposition: 16:44 (Patient admitted to L&D)
--- NOTE | 2021-03-24 13:36 | Cat Scan Report ---
CT head/brain wo con INDICATION: Headache, . TECHNIQUE: All CT scans at this location are performed using CT dose reduction for ALARA by means of automated e xposure control. COMPARISON: None available. FINDINGS: There is no evidence of hemorrhage, hydrocephalus, brain edema, or mass effect/mass lesion. There is overall normal brain formation and brain volume for the patient's age. Ventricular and cisternal/sulc al size is normal for age. The included paranasal sinuses and mastoid air cells are clear. The orbits appear unremarkable. IMPRESSION: 1. No acute findings. Signer Name: Simon Finney MD Signed: 03/24/2021 1:32 PM Workstation Name: [id number]
[2021-03-24 13:44] LABS: Basophils % (Auto) 0.4 % (0.0-1.8); Eosinophils # (Auto) 0.1 K/mm3 (0.0-0.4); Eosinophils % (Auto) 2.6 % (0.0-4.3); Hematocrit 30.6 % (30.3-42.9); Hemoglobin 9.8 gm/dl (10.1-14.3); Lymphocytes % (Auto) 37.7 % (13.4-35.0); Mean Corpuscular HGB Conc 32 % (30-34); Mean Corpuscular Volume 79 fl (79-97); Monocytes # (Auto) 0.4 K/mm3 (0.0-0.8); Monocytes % (Auto) 7.5 % (0.0-7.3); Platelet Count 286 K/mm3 (140-440); Red Blood Count 3.89 M/mm3 (3.65-5.03)
[2021-03-24 14:01] LABS: Alanine Aminotransferase 14 units/L (7-56); Albumin 3.6 g/dL (3.9-5); Blood Urea Nitrogen 9 mg/dL (7-17); Calcium 9.1 mg/dL (8.4-10.2); Hemolysis Index 0
[2021-03-24] MEDS ORDERED: MAGNESIUM SULFATE 4 GM/100 ML BAG IV ONE (14:07)
[2021-03-24 14:12] LABS: Red Cell Distribution Width 20.6 % (13.2-15.2)
[2021-03-24 14:13] LABS: BUN/Creatinine Ratio 18
[2021-03-24 15:25] LABS: Bilirubin,Urine NEG (Negative); Blood,Urine NEG (Negative); Color,Urine Yellow (Yellow); Mucus,Urine FEW /HPF; Protein,Urine <15 mg/dL mg/dL (Negative)
[2021-03-24 16:15] LABS: Bacteria,Urine 2+ /HPF (Negative)
[2021-03-24] MEDS ORDERED: NalbUPHINE 10 MG/1 ML INJ IV PRN (18:22)
[2021-03-24] MEDS ORDERED: MAGNESIUM SULFATE 40GM/1000ML 40 GM/1,000 ML BAG IV ONE (18:26)
[2021-03-24] MEDS ORDERED: LACTATED RINGERS 1,000 ML IV SCH (18:30)
--- NOTE | 2021-03-24 18:30 | History and Physical Report ---
History of Present Illness Date of examination: 03/24/21 Date of admission: 03/24/21 16:45 Chief complaint: Admitted for preeclampsia. History of present illness: 30 year old presents to L&D to be admitted for preeclampsia. Patient was seen in ED and received her loading dose of magnesium sulfate there. Patient had a repeat section delivery of liveborn female infant on 03/15/21 ( C/S was due to placenta previa with bleeding). Patient reports she has had a headache since this morning. She denies visual disturbance, nausea or vomiting, or swelling. She has been taking Percocet at home for her incision pain and states that this controls her pain. Baby is still here in our NICU. Past History Past Medical History: other (history of eclampsia after previous delivery, history of blood transfusion, history of vitamin D deficiency, previous cigarette smoker) Past Surgical History: section (C/S times 2), other (EAB times 2) COOK JELLY History: herpes, trichomonas (history of, treated and cured). denies: chlamydia, gonorrhea, hepatitis B, hepatitis C, HIV, syphilis Family/Genetic History: other (history of child with trisomy 21 and congenital heart defect) Social history: lives with family, full code. denies: smoking, alcohol abuse, prescription drug abuse, IV drug use Medications and Allergies Allergies Allergy/AdvReac Type Severity Reaction Status Date / Time metronidazole [From Flagyl] Allergy Swelling Verified 03/24/21 19:25 Home Medications Medication Instructions Recorded Confirmed Last Taken Type Ibuprofen [Motrin] 800 mg PO Q8HR PRN 21 Days #40 03/19/21 Unknown Rx tablet oxyCODONE /ACETAMINOPHEN [Percocet 1 tab PO Q4HR PRN 21 Days #30 tab 03/19/21 Unknown Rx 5/325] Active Meds: Active Medications Acetaminophen (Acetaminophen 325 Mg Tab) 650 mg PO Q4H PRN PRN Reason: Pain, Mild (1-3) Hydralazine HCl (Hydralazine 20 Mg/1 Ml Inj) 5 mg IV Q30MIN PRN PRN Reason: Hypertension Lactated Ringer's (Lactated Ringers) 1,000 mls @ 75 mls/hr IV DIRECT MICKY Magnesium Sulfate (Magnesium Sulfate 40gm/1000ml) 40 gm in 1,000 mls @ 50 mls/hr IV ONCE ONE Stop: 03/25/21 14:25 Labetalol HCl (Labetalol 200 Mg Tab) 200 mg PO BID MICKY Nalbuphine HCl (Nalbuphine 10 Mg/1 Ml Inj) 10 mg IV Q2H PRN PRN Reason: Pain, Moderate (4-6) Review of Systems All systems: negative (headache) - Vital Signs Vital signs: Vital Signs Pulse Ox 96 03/24/21 11:18 Temp Pulse Resp BP Pulse Ox 97.8 F 70 16 155/93 100 03/24/21 18:27 03/24/21 18:27 03/24/21 18:27 03/24/21 18:27 03/24/21 18:27 - Physical Exam Cardiovascular: Regular rate Lungs: Positive: Clear to auscultation Abdomen: Positive: normal appearance, soft, normal bowel sounds. Negative: distention, tenderness, guarding, rigidity Uterus: Negative: tender Extremities: Negative: tenderness, edema Results Result Diagrams: 03/24/21 13:15 03/24/21 13:15 Abnormal lab results 03/24/21 03/24/21 Range/Units 13:15 13:15 Hgb 9.8 L (10.1-14.3) gm/dl MCH 25 L (28-32) pg RDW 20.6 H (13.2-15.2) % Lymph % (Auto) 37.7 H (13.4-35.0) % [place] % (Auto) 7.5 H (0.0-7.3) % Creatinine 0.5 L (0.6-1.2) mg/dL Albumin 3.6 L (3.9-5) g/dL All other labs normal. Assessment and Plan A: day 9 S/P repeat section. Preeclampsia with severe features. P: Admit. Magnesium sulfate for prevention of seizures. Labetalol 200 mg po BID for control of blood pressures. I&O, Hussein, SCDs. Consulted with Dr. Funk re: this patient.
[2021-03-24] MEDS: oxyCODONE /ACETAMINOPHEN 5-325MG TAB PO PRN (20:00)
[2021-03-25] MEDS: ACETAMINOPHEN 325 MG TAB PO PRN ×3 (00:37→22:26)
[2021-03-25] MEDS: hydrALAZINE 20 MG/1 ML INJ IV PRN ×2 (07:33→10:20)
[2021-03-25] MEDS: oxyCODONE /ACETAMINOPHEN 5-325MG TAB PO PRN ×2 (07:34→14:20)
--- NOTE | 2021-03-25 08:21 | Progress Note ---
Subjective - Subjective Date of service: 03/25/21 Interval history: PP Preeclampsia BP's stable on MGSO4 Labs WNL Plan for 24 hours MGSO4 PO labetalol, titrate for BP's<150/90 Maternal status stable Carmina Funk MD Objective - Vital Signs Latest vital signs: Vital Signs Temp Pulse Resp BP BP Pulse Ox Pulse Ox 03/25/21 08:14 99 H 125/82 03/25/21 08:11 103 H 146/117 03/25/21 07:47 98.2 F 100 H 14 143/85 143/85 03/25/21 07:43 97 03/25/21 07:40 97 03/25/21 07:33 101 H 130/100 03/25/21 07:27 101 H 130/100 03/25/21 06:11 82 126/77 03/25/21 05:11 85 138/75 03/25/21 04:11 78 129/72 03/25/21 03:15 98.1 F 03/25/21 03:11 76 137/93 03/25/21 02:11 97 H 125/73 03/25/21 01:11 76 143/84 03/25/21 00:11 77 120/70 03/24/21 23:15 98.4 F 03/24/21 23:11 75 138/92 03/24/21 22:11 72 140/86 03/24/21 21:11 70 126/85 03/24/21 20:11 81 131/89 03/24/21 19:42 90 03/24/21 19:37 128 H 93 03/24/21 19:25 91 03/24/21 19:15 98.6 F 100 03/24/21 19:10 71 136/90 03/24/21 18:58 73 L 03/24/21 18:55 72 138/85 03/24/21 18:52 72 90 03/24/21 18:43 71 76 L 03/24/21 18:32 80 L 03/24/21 18:27 97.8 F 70 16 155/93 100 03/24/21 18:26 72 98 03/24/21 18:25 74 155/93 03/24/21 17:15 92 H 13 141/106 100 03/24/21 17:01 82 16 156/105 99 03/24/21 16:45 88 19 152/85 94 03/24/21 16:31 70 26 H 136/88 100 03/24/21 16:15 76 15 149/93 100 03/24/21 16:01 79 20 128/83 100 03/24/21 15:45 69 24 139/96 98 03/24/21 15:31 74 27 H 146/102 98 03/24/21 15:15 77 25 H 128/83 97 03/24/21 15:01 82 20 155/95 100 03/24/21 14:45 73 14 146/102 100 03/24/21 14:31 71 26 H 146/102 99 03/24/21 14:15 82 22 152/106 100 03/24/21 14:01 82 15 146/98 99 03/24/21 13:45 69 13 152/92 100 03/24/21 13:38 75 152/92 03/24/21 13:31 78 16 138/100 100 03/24/21 13:15 77 16 138/100 99 03/24/21 13:01 81 20 155/102 100 03/24/21 13:00 74 12 155/102 100 03/24/21 12:55 76 10 L 112/73 03/24/21 12:00 112/73 99 03/24/21 11:46 112/73 99 03/24/21 11:30 112/73 100 03/24/21 11:18 96 Intake and Output 03/24/21 03/25/21 03/25/21 23:59 07:59 15:59 Output Total 500 1200 1000 Balance -500 -1200 -1000 Output: Urine 500 1200 1000 Void 500 1200 1000 Other: Total, Output Amount [phone] - Labs Labs: Abnormal lab results 03/24/21 03/24/21 03/25/21 Range/Units 13:15 13:15 00:31 Hgb 9.8 L (10.1-14.3) gm/dl MCH 25 L (28-32) pg RDW 20.6 H (13.2-15.2) % Lymph % (Auto) 37.7 H (13.4-35.0) % [place] % (Auto) 7.5 H (0.0-7.3) % Creatinine 0.5 L (0.6-1.2) mg/dL Magnesium 4.60 H (1.7-2.3) mg/dL Albumin 3.6 L (3.9-5) g/dL
[2021-03-25] MEDS: DOCUSATE SODIUM 100 MG CAP PO SCH ×2 (10:47→22:22)
[2021-03-26] MEDS: oxyCODONE /ACETAMINOPHEN 5-325MG TAB PO PRN ×2 (00:46→10:09)
--- NOTE | 2021-03-26 09:42 | Progress Note ---
Assessment and Plan A: day 11 S/P section. preeclampsia, S/P magnesium sulfate. Blood pressures controlled on Labetalol. Headache. P: Requested nurse medicate patient for headache. Continue to monitor blood pressures. Anticipate discharge home tomorrow if patient continues to do well. Subjective - Subjective Date of service: 03/26/21 Principal diagnosis: preeclampsia Interval history: day 11 S/P C/S; admitted on 03/24/21 for preeclampsia. Magnesium sulfate was stopped yesterday evening. BPs are controlled on Labetalol. Patient reports headache this morning; requests medication for headache. Patient denies visual disturbance, nausea or vomiting, chest pain, shortness of breath, or any other problems. Patient reports: appetite normal, voiding normally, pain well controlled, flatus, bowel movement, ambulating normally, no dizzy ambulation, no nauseated Objective - Vital Signs Latest vital signs: Vital Signs Temp Pulse Resp BP BP Pulse Ox Pulse Ox 03/26/21 07:56 98.2 F 74 18 135/84 98 03/26/21 04:31 98.8 F 88 20 125/66 97 03/26/21 01:45 99 03/26/21 01:17 98.4 F 77 20 126/81 97 03/26/21 00:46 18 98 03/25/21 22:26 18 98 03/25/21 22:22 91 H 113/78 03/25/21 20:30 98.8 F 91 H 22 113/78 99 03/25/21 20:07 94 H 133/94 03/25/21 20:03 94 H 131/97 03/25/21 20:02 95 H 130/100 03/25/21 19:21 94 H 149/99 03/25/21 19:11 91 H 146/100 03/25/21 18:43 99.0 F 85 14 117/72 117/72 03/25/21 18:11 90 108/67 03/25/21 17:22 98.8 F 93 H 12 117/75 03/25/21 17:21 93 H 117/75 03/25/21 17:11 84 112/65 03/25/21 16:13 91 H 123/87 03/25/21 15:11 99 H 118/79 03/25/21 14:11 92 H 122/87 03/25/21 13:11 96 H 110/64 03/25/21 12:25 98.6 F 18 98 03/25/21 12:19 18 03/25/21 12:13 86 110/69 03/25/21 11:11 97 H 119/89 03/25/21 10:47 100 H 148/90 03/25/21 10:46 97 H 148/90 03/25/21 10:20 97 H 141/101 03/25/21 10:18 97 H 141/95 03/25/21 10:11 97 H 147/101 03/25/21 10:00 98 Intake and Output 03/25/21 03/26/21 03/26/21 23:59 07:59 15:59 Intake Total 120 Output Total 900 250 Balance -780 -250 Intake: Oral 120 Output: Urine 900 250 Void 900 250 Other: Total, Intake Amount 120 Total, Output Amount 100 100 # Voids Void 1 1 # Bowel Movements 1 - Exam Cardiovascular: Present: Regular rate Lungs: Present: Clear to auscultation Abdomen: Present: normal appearance, soft, normal bowel sounds. Absent: distention, tenderness, guarding, rigidity Uterus: Present: normal, firm, fundal height below umbilicus. Absent: bogginess, tenderness Extremities: Absent: tenderness, edema Incision: Present: dry, intact - Labs Labs: Abnormal lab results 03/25/21 03/25/21 Range/Units 12:13 17:38 Magnesium 5.90 H 4.60 H (1.7-2.3) mg/dL
[2021-03-26] MEDS: DOCUSATE SODIUM 100 MG CAP PO SCH ×2 (10:09→21:30)
[2021-03-26] MEDS ORDERED: BUTALB/ACETAMINOPHEN/CAFFEINE TAB PO ONE (19:36)
[2021-03-26] MEDS ORDERED: FLEET ENEMA PR ONE (19:48)
[2021-03-26] MEDS ORDERED: HYDROCORTISONE 2.5% RECT CREAM 28.35 GM PR PRN (19:49)
[2021-03-27] MEDS: oxyCODONE /ACETAMINOPHEN 5-325MG TAB PO PRN ×2 (00:15→22:25)
[2021-03-27] MEDS: hydrALAZINE 20 MG/1 ML INJ IV PRN (01:50)
--- NOTE | 2021-03-27 07:04 | Event Note ---
Date: 03/27/21 Labetalol increased to 300 mg po BID.
[2021-03-27] MEDS: DOCUSATE SODIUM 100 MG CAP PO SCH (09:00)
[2021-03-27] MEDS: ACETAMINOPHEN 325 MG TAB PO PRN (12:30)
--- NOTE | 2021-03-27 13:18 | Progress Note ---
Assessment and Plan A: PP Preeclampsia C/o occ headache (mildly elevated b/p) Vag laurence P: Continue routine pp orders Continue Labetalol as ordered Diflucan x 1 D/C within 24-48 hrs when b/p stable Subjective - Subjective Date of service: 03/27/21 Principal diagnosis: preeclampsia Patient reports: appetite normal, voiding normally, pain well controlled, ambulating normally, other (c/o occ headache just took Tylenol and feeling better now) [place]: doing well, in NICU Objective - Vital Signs Latest vital signs: Vital Signs Temp Pulse Resp BP BP Pulse Ox Pulse Ox 03/27/21 12:30 98.7 F 68 18 148/83 96 03/27/21 08:00 98 03/27/21 07:39 98.8 F 62 18 141/84 99 03/27/21 04:20 98.4 F 63 147/75 03/27/21 02:20 70 156/81 03/27/21 01:35 97.8 F 70 16 166/77 97 03/26/21 23:15 65 141/95 03/26/21 20:57 99.1 F 76 20 152/83 96 03/26/21 20:15 99 03/26/21 18:49 98.3 F 74 18 148/91 97 Intake and Output 03/26/21 03/27/21 03/27/21 22:59 06:59 14:59 Intake Total 360 100 480 Output Total 500 Balance -140 100 480 Intake: Oral 480 Intake, Free Water 360 100 Output: Urine 500 Void 500 Other: Total, Intake Amount 240 Total, Output Amount 500 # Voids Void 1 1 1 # Bowel Movements 1 - Exam Breasts: Present: normal Abdomen: Present: normal appearance, soft, normal bowel sounds Vulva: both: normal Uterus: Present: normal, firm, fundal height below umbilicus Extremities: Present: normal Incision: Present: normal, dry, intact
[2021-03-27] MEDS ORDERED: FLUCONAZOLE 200 MG TAB PO ONE (14:00)
[2021-03-28] MEDS: DOCUSATE SODIUM 100 MG CAP PO SCH (00:07)
[2021-03-28] MEDS: ACETAMINOPHEN 325 MG TAB PO PRN (09:29)
[2021-03-28 09:32] VITALS: BP 149/81
--- NOTE | 2021-03-28 09:54 | Discharge Summary ---
Providers - Providers Date of Admission: 03/24/21 16:45 Date of discharge: 03/28/21 Attending physician: DEJAH CORONA MD Primary care physician: DIRECTOR OF [employer]URITIES AND [employer] Hospitalization Reason for admission: other (admitted for pp preclampsia) Delivery: Procedure: repeat low transverse Episiotomy: none Laceration: none Incision: normal, dry, intact Other procedures: none complications: other (preeclampsia) Condition at discharge: Stable Disposition: 01 HOME / SELF CARE / HOMELESS Plan - Discharge Medications Prescriptions: labetaloL [Labetalol 100mg TAB] 300 mg PO BID #120 tablet - Provider Discharge Summary Activity: routine, no sex for 6 weeks, no heavy lifting 4 weeks, no strenuous exercise Diet: routine Instructions: routine Additional instructions: [] Smoking cessation referral if applicable(refer to patient education folder for contact #) [] Refer to [facility] Booklet Call your doctor immediately for: * Fever > 100.5 * Heavy vaginal bleeding ( >1 pad per hour) * Severe persistent headache * Shortness of breath * Reddened, hot, painful area to leg or breast * Drainage or odor from incision. * Keep incision clean and dry at all times and follow doctor's instructions regarding bathing/showering F/U in 2 wks for a b/p check - Follow up plan Follow up: PRIMARY CARE, [Primary Care Provider] - 14 Days Forms: [facility] Discharge Summary
[2021-03-28] MEDS ORDERED: FLUCONAZOLE 100 MG/10 ML ORAL SYRINGE PO ONE (13:24)
== END 2021-03-28 13:20 | disposition home or self-care (01) | DRG 776 ==
LOC: ED 12:31 → LD 16:45 → OBSVTOIN 16:45 → OB 03-25 21:14
PROVIDERS: ADMIT Obstetrics & Gynecology; ATTEND Obstetrics & Gynecology
DX: O14.15 Severe pre-eclampsia, complicating the puerperium (principal); Z20.822 Contact with and (suspected) exposure to COVID-19; O98.83 Other maternal infectious and parasitic diseases complicating the puerperium; B37.9 Candidiasis, unspecified; Z88.8 Allergy status to other drugs, medicaments and biological substances
CPT/HCPCS: 36415; 70450; 80053; 81001; 83735; 85025; G0378; J0360; J3475; J7120; U0003

== ENCOUNTER 2021-05-03 03:54 | Emergency (ER) | payer OTHER, MEDICAID ==
[2021-05-03 04:01] VITALS: BP 155/98
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
== END 2021-05-03 05:15 | disposition home or self-care (01) ==
LOC: ED 03:54
DX: S00.83XA Contusion of other part of head, initial encounter (principal); S00.512A Abrasion of oral cavity, initial encounter; V49.49XA Driver injured in collision with other motor vehicles in traffic accident, initial encounter; Y93.89 Activity, other specified; Y92.89 Other specified places as the place of occurrence of the external cause; Y99.8 Other external cause status
CPT/HCPCS: 99281